=== PATIENT | male | born 1990 | race Caucasian/White ===

== ENCOUNTER → 2016-09-18 14:33 | Emergency (ER) | payer SELFPAY ==
[~2016-09-18 14:33] MED LIST: clonazePAM TAB(*) 0.5 MG ONE; clonazePAM TAB(*) 1 MG PO ONE
[2016-09-18 16:22] VITALS: BP 152/99
--- NOTE | 2016-09-18 16:26 | ED ---
Lachelle Chan Rebecca, scribed for Concha Toro MD on 09/18/16 at 1609 . Complex/Multi-Sys Presentation - HPI Summary HPI Summary: Pt is a 26 y/o M who presents to ED for an Rx refill. Pt reports he was in [place] visiting him mother on morning (2 days ago) where he left his Clonazapam (dose of 2 mg per day). Initially reports that his mother mailed his medication to him. Pt states initially that mom mailed on Tuesday, but thinks it was today. States he does not drive and walked to ED. Pt states he is concerned will have a seizure without medications. Pt states he tried to call his PCP (Dr. Escudero) but was directed to the by answering machine. Pt reports has nausea and feels sweaty. Pt denies olivas, vision changes. States he has gone 3 days without his Clonazepam and is experiencing diaphoresis and decreased PO intake. Reports 1.5 years ago he went without his Clonazapam and had a seizure. Additionally states his Hydrocodone Rx had too high of a dose (300 mg) inputted and was unable to have it filled on Tuesday due to cost. I expressed to concern that may not be able to fill as he recently got an Rx for 30 days supply. I told patient I would consider writing for 2 days but needed to talk to mom to verify she mailed Rx. Pt then admitted that he does not know where they are and that he has not contacted his mother about the lost medication. Review of [facility] shows that he had 30 day supply filled in [place] on 09/03/2016. - History Of Current Complaint Chief Complaint: EDPrescriptionNeeded Time Seen by Provider: 09/18/16 15:39 Hx Obtained From: Patient Onset/Duration: Lasting Days - 3 days without medication Severity Currently: None Location: Negative Aggravating Factor(s): 3 days without Clonazepam Alleviating Factor(s): Nothing Associated Signs And Symptoms: Positive: Nausea, Decreased Oral Intake, Other - Diaphoresis, anxious - Allergies/Home Medications Allergies/Adverse Reactions: Allergies Allergy/AdvReac Type Severity Reaction Status Date / Time Bee Venom Allergy Hives/Diff. Verified 09/18/16 14:45 Breathing/I tching Codeine Allergy Swelling Verified 09/18/16 14:45 Of Face,Lips,& Throat PMH/Surg Hx/FS Hx/Imm Hx Previously Healthy: Yes Endocrine/Hematology History: Denies: Hx Diabetes, Hx Thyroid Disease Cardiovascular History: Denies: Hx Congestive Heart Failure, Hx Deep Vein Thrombosis, Hx Hypertension , Hx Myocardial Infarction, Hx Pacemaker/ICD Respiratory History: Reports: Hx Asthma - He is not using an inhaler now. Denies: Hx Chronic Obstructive Pulmonary Disease (COPD), Hx Lung Cancer GI History: Denies: Hx Gall Bladder Disease, Hx Gastrointestinal Bleed, Hx Ulcer, Hx Urosepsis Musculoskeletal History: Reports: Hx Back Problems Denies: Hx Arthritis, Hx Rheumatoid Arthritis - fell on bus few years ago-he believes he had a seizure, Hx Bursitis, Hx Congenital Bone Abnormalities, Hx Fibromyalgia, Hx Gout, Hx Orthopedic Injury, Hx Osteoporosis, Hx Scoliosis, Hx Tendonitis, Other Musculoskeletal History Neurological History: Reports: Hx Seizures - from benzo withdrawal, Other Neuro Impairments/Disorders - SLIPPED DISCS LUMBAR Denies: Hx Dementia, Hx Migraine, Hx Transient Ischemic Attacks (TIA) Psychiatric History: Reports: Hx Anxiety, Hx Attention Deficit Hyperactivity Disorder, Hx Depression Infectious Disease History: No Infectious Disease History: Denies: Hx Clostridium Difficile, Hx Hepatitis, Hx Human Immunodeficiency Virus (HIV), Hx of Known/Suspected MRSA, Hx Shingles, Hx Tuberculosis, Hx Known/ Suspected VRE, Hx Known/Suspected VRSA, History Other Infectious Disease, Traveled Outside the [place] in Last 30 Days - Family History Known Family History: Positive: Other - anxiety, depression - Social History Occupation: Unemployed Lives: Alone Alcohol Use: Occasionally Alcohol Amount: social drinking Hx Substance Use: No Substance Use Type: Reports: None, Prescribed Hx Tobacco Use: Yes Smoking Status (MU): Light Every Day Tobacco Smoker Type: Cigarettes Amount Used/How Often: couple a day Have You Smoked in the Last Year: Yes Review of Systems Positive: Skin Diaphoresis - secondary to medication non-compliance Eyes: Negative ENT: Negative Cardiovascular: Negative Respiratory: Negative Positive: Other - Decreased PO intake secondary to medicaiton noncompliane Genitourinary: Negative Musculoskeletal: Negative Skin: Negative Neurological: Negative Positive: Anxious All Other Systems Reviewed And Are Negative: Yes Physical Exam Triage Information Reviewed: Yes Vital Signs On Initial Exam: Initial Vitals Temp Pulse Resp BP Pulse Ox 97.7 F 108 16 161/112 97 09/18/16 14:41 09/18/16 14:41 07/29/17 14:41 09/18/16 14:41 09/18/16 14:41 Vital Signs Reviewed: Yes Appearance: Positive: Well-Appearing, No Pain Distress, Well-Nourished Skin: Positive: Warm, Skin Color Reflects Adequate Perfusion, Dry Eyes: Positive: Normal, EOMI, Other: - pupils 5mm b/l, + reactive. Negative: Conjunctiva Clear, Discharge ENT: Positive: Hearing grossly normal, Pharynx normal, TMs normal Neck: Positive: Supple, Nontender, No Lymphadenopathy Respiratory/Lung Sounds: Positive: Clear to Auscultation, Breath Sounds Present , Decreased Breath Sounds Cardiovascular: Positive: Normal, RRR, Pulses are Symmetrical in both Upper and Lower Extremities. Negative: Murmur Abdomen Description: Positive: Nontender, No Organomegaly, Soft Bowel Sounds: Positive: Present Musculoskeletal: Positive: Normal, Strength/ROM Intact Neurological: Positive: Normal, Sensory/Motor Intact, Alert, Oriented to Person Place, Time Psychiatric: Positive: Normal AVPU Assessment: Alert - Swain Coma Scale Best Eye Response: 4 - Spontaneous Best Motor Response: 6 - Obeys Commands Best Verbal Response: 5 - Oriented Diagnostics - Vital Signs Vital Signs Temp Pulse Resp BP Pulse Ox 09/18/16 14:41 97.7 F 108 16 161/112 97 - Laboratory Lab Statement: Any lab studies that have been ordered have been reviewed, and results considered in the medical decision making process. Complex Multi-Symp Course/Dx Assessment/Plan: Pt presents requesting clonazepam x 2 days initialy stating left Rx in [place] at mother's house. upon further questioning, pt states lost his Rx. Will give 1 dose in ED and discharge. no RX. Pt aware and in agreement with plan - Diagnoses Provider Diagnoses: Medication requested Discharge - Discharge Plan Condition: Stable Disposition: HOME Patient Education Materials: Medicine Refill (ED) Referrals: Jared Escudero MD [Primary Care Provider] - Additional Instructions: you were given a 1 time tablet of your missing medication. It is VERY important that you take your medications as exactly as prescribed you must communicate with your primary care provider that you misplaced your prescription call your doctor to discuss the conflict with your other prescriptions The documentation as recorded by the Lachelle frod Rebecca accurately reflects the service I personally performed and the decisions made by Cortez kirby Laura, MD.
== END | disposition home or self-care (01) ==
LOC: ED 14:33
DX: G40.909 Epilepsy, unspecified, not intractable, without status epilepticus (principal); F17.210 Nicotine dependence, cigarettes, uncomplicated
CPT/HCPCS: 99281; A9270-GY

== ENCOUNTER 2016-11-25 09:51 | Inpatient (IN) | payer OTHER ==
[2016-11-25] MEDS ORDERED: LORazepam TAB(*) 1 MG PO ONE (11:59)
[2016-11-25] MEDS ORDERED: cloNIDine TAB* 0.1 MG PO ONE (11:59)
[2016-11-25] MEDS ORDERED: Ondansetron TAB* 4 MG PO ONE (11:59)
[2016-11-25 12:31] LABS: Hematocrit 46 % (42-52); Hemoglobin 15.9 g/dl (14.0-18.0); Mean Corpuscular HGB Conc 35 g/dl (31-36); Mean Corpuscular Hemoglobin 30 pg (27-31); Mean Corpuscular Volume 88 fL (80-94); Mean Platelet Volume 7 um3 (7.4-10.4); Red Blood Count 5.26 10^6/ul (4.0-5.4); Red Cell Distribution Width 13 % (10.5-15); White Blood Count 7.3 10^3/ul (3.5-10.8)
[2016-11-25] MEDS ORDERED: Acetaminophen TAB* 325 MG PO PRN (12:39)
[2016-11-25] MEDS ORDERED: Nicotine GUM* 2 MG PO PRN (12:39)
[2016-11-25] MEDS ORDERED: Ondansetron INJ* 2 MG/ML VIAL IV PRN (12:39)
[2016-11-25 12:48] LABS: ALT 79 U/L (7-52); AST 36 U/L (13-39); Albumin 4.8 g/dL (3.2-5.2); Alkaline Phosphatase 62 U/L (34-104); Anion Gap 10 mmol/L (2-11); BUN/Creatinine Ratio 10.3 (8-20); Blood Urea Nitrogen 9 mg/dL (6-24); CO2 Carbon Dioxide 28 mmol/L (22-32); Calcium 9.8 mg/dL (8.6-10.3); Chloride 99 mmol/L (101-111); EGFR African American 135.4 (>60); EGFR Non-African American 105.3 (>60); Globulin 3.4 g/dL (2-4); Glucose 99 mg/dL (70-100); Potassium 3.9 mmol/L (3.5-5.0); Sodium 137 mmol/L (133-145); Total Protein 8.2 g/dL (6.4-8.9)
[2016-11-25 13:10] LABS: Acetaminophen < 15 mcg/mL; Alcohol < 10 mg/dL (<10); Salicylate < 2.50 mg/dL (<30)
[2016-11-25 13:28] LABS: TSH (Thyroid Stimulating Horm) 1.45 mcIU/mL (0.34-5.60)
--- NOTE | 2016-11-25 14:39 | HP ---
HOSPITAL MEDICINE HISTORY AND PHYSICAL: DATE OF ADMISSION: 11/25/16 PRIMARY CARE PHYSICIAN: None. ATTENDING PHYSICIAN: Dr. Cande Chavis * (dictation provided by Pooja Murguia NP ). CHIEF COMPLAINT: Withdrawal from benzodiazepines and narcotics. HISTORY OF PRESENT ILLNESS: Mr. Watson is a 26-year-old male, who presents today via EMS with concern for symptoms of withdrawal from benzodiazepines and narcotics. Mr. Watson has been on hydrocodone for a back injury, which he sustained around age 20 to 21 years old. He states he had an MRI that showed that he had "two bad disks." He was first on tramadol, then CODEINE (from which he developed hives), and then hydrocodone. He has been obtaining that medication through Dr. Escudero's office routinely. He was prescribed clonazepam related to anxiety related to a job he had at [employer]. He is no longer working for [employer], but has continued on clonazepam for ongoing anxiety issues. He states that he was in counseling for a short period of time, but "it didn't work." He reports in the past that he has had a withdrawal seizure related to benzodiazepine use. Though he has been getting these medications through Dr. Escudero's office, per his report, he recently switched over to [place] and Dr. Escudero' s office does not take that insurance. Therefore, he is no longer patient of Dr. Escudero's and has not been getting his hydrocodone or benzodiazepine. The patient states his last dose of hydrocodone was on 11/21/16. His last dose of benzodiazepine was 7 days ago. He reports today that he "felt like absolute hell." He reports having sweaty hands and feet. He had visual distortions. He had insomnia. He had feeling of whooshing in his head. He ultimately called EMS and was brought to the emergency room. In the emergency room, Mr. Watson had vital signs that showed that he was hypertensive with the blood pressure running 143/119. He is mildly tachycardic with a heart rate running above 100. He reports that he would like support in withdrawing from hydrocodone and clonazepam and that he is interested in rehab once he has overcome these withdrawal symptoms. At this time, his labs are pending. PAST MEDICAL HISTORY: 1. Reported back injury at age 20 to 21. 2. Anxiety. MEDICATIONS: 1. Clonazepam 1 mg b.i.d. 2. Hydrocodone 5/325 mg 1 tab p.o. q.12 hours p.r.n. 3. Tramadol 100 mg p.o. daily. ALLERGIES: To CODEINE, BEE VENOM. FAMILY HISTORY: The patient reports his mother is alive and well. His father has heart disease and hypertension. There is some report of his paternal grandfather dying young related to needed heart transplant. SOCIAL HISTORY: The patient is an intermittent smoker. He reports that typically he is not a big drinker, but when he is out of his medications, he does drink more heavily and has been doing so recently. No report of illicit drug use, but he does confirm that he has been using his clonazepam inappropriately as he has run out of his hydrocodone. REVIEW OF SYSTEMS: A 14-point review of systems was completed with Mr. Watson and all those not mentioned above were negative except for the fact that the patient does mention a "rash" to the side of his shoulder and torso. PHYSICAL EXAMINATION GENERAL: Mr. Watson is lying on the bed. He is in no acute distress. VITAL SIGNS: Temperature 99.6, heart rate 102, respiratory rate 18, O2 saturation 99% on room air, blood pressure 143/119. HEENT: The patient is normocephalic. His pupils are equal and reactive. His disc margins are sharp. There is no AV nicking. He has normal tympanic membranes with no erythema or drainage. There is no lymphadenopathy. LUNGS: Clear to auscultation bilaterally with no accessory muscle use and good aeration. HEART: S1 and S2. No murmur, rub, or gallop, and regular. ABDOMEN: Soft and nontender with bowel sounds positive x4. EXTREMITIES: No cyanosis or edema. NEURO: He is alert, he is oriented x3. He moves all extremities equally. There is no facial asymmetry or focal weakness. Extraocular movements are intact. SKIN: The patient has 2 to 3 raised papules on his shoulder and 1 to 2 on the side of his left torso. There is no drainage. There is no associated erythema. No open area. DIAGNOSTIC STUDIES/LAB DATA: Labs are pending. EKG shows a sinus rhythm with no evidence of ischemia. ASSESSMENT AND PLAN: Mr. Watson is a 26-year-old male with a past medical history of back pain and anxiety for which he has been on hydrocodone, tramadol , and clonazepam, who presents to the hospital today after no longer being able to get those prescriptions from Dr. Escudero's office reportedly related to an insurance issue with concern for narcotic and benzodiazepine withdrawal. Our plans are for observation in the hospital for the followin. Narcotic and benzodiazepine withdrawal: The patient actually looks quite well at the moment. He has received clonidine and lorazepam in the emergency room, both x1. Our plans will be to manage narcotic withdrawal with clonidine q.8 hours p.r.n. We will manage benzodiazepine withdrawal with the lorazepam taper. He will be hydrated with normal saline at 100 mL per hour and we can adjust this planned medication regimen based on clinical course. 2. History of smoking. The patient will have nicotine replacement products available prn. 3. Pending labs: Plan to review labs when those are available and adjust the treatment course as needed. 4. DVT prophylaxis. Early mobility. 5. Code status is full code. 6. Disposition to the medical floor. Social Work has been consulted regarding the patient's request for rehabilitation. TIME SPENT: Approximately 60 minutes was spent in the admission of this patient , more than half time spent with the patient at the bedside reviewing the events leading up to this hospitalization, performing the physical examination, and reviewing my plan of care. POOJA MURGUIA NP [id number]/CPS #: [id number] RONAK
--- NOTE | 2016-11-25 14:55 | ED ---
Domingo Chan Thomas, scribed for Darian Wilder MD on 11/25/16 at 1201 . Substance Abuse/Use - HPI Summary HPI Summary: The pt is a 26 y/o M presenting to the ED c/o withdrawal symptoms after he ran out of hydrocodone four days ago and ran out of Klonopin seven days ago. Symptoms include N/V/D, shakiness, diaphoresis, insomnia, tinnitus, and visual disturbances. He has been self-medicating with alcohol in the last few days but he denies alcohol use today. He last used alcohol yesterday. He also was given Xanax by his friend a few days ago. In the past, he reports seizures d/t benzodiazepine withdrawal. He was initially prescribed hydrocodone by Dr. Delfino Molina from Dr. Thomas office for chronic back pain. He was prescribed benzodiazepines by Dr. Mckeon. The patient says that he lost his job 5 months ago and for this reason he will no longer be seen by his doctors. PMHx: chronic back pain. PSHx: none. SHx: daily alcohol use, prescribed opioid use, prescribed benzodiazepine use. FHx: CAD, anxiety, depression. - History Of Current Complaint Chief Complaint: EDDetoxRequest Stated Complaint: WITHDRAWAL Time Seen by Provider: 11/25/16 11:30 Hx Obtained From: Patient Ingestion History: Type/Name Of Drug - Prior hydrocodone and Klonopin use Timing Of Abuse: Recent Cessation For A Period Of - stopped hydrocodone four days ago and Clonopin seven days ago Aggravating Factor(s): Nothing Alleviating Factor(s): Other - Xanax helped his withdrawal symtpoms Associated Signs And Symptoms: Sleep Disturbance, Diaphoretic, Nausea, Vomiting , Diarrhea, Other: - shakiness, tinnitus, visual disturbances Related Hx: Drug/Alcohol Last Used @ - Alcohol last used yesterday, Xanax last used earlier this week - Allergies/Home Medications Allergies/Adverse Reactions: Allergies Allergy/AdvReac Type Severity Reaction Status Date / Time Bee Venom Allergy Hives/Diff. Verified 09/18/16 14:45 Breathing/I tching Codeine Allergy Swelling Verified 09/18/16 14:45 Of Face,Lips,& Throat Bad table PMH/Surg Hx/FS Hx/Imm Hx Previously Healthy: No Endocrine/Hematology History: Denies: Hx Diabetes, Hx Thyroid Disease Cardiovascular History: Denies: Hx Congestive Heart Failure, Hx Deep Vein Thrombosis, Hx Hypertension , Hx Myocardial Infarction, Hx Pacemaker/ICD Respiratory History: Reports: Hx Asthma - He is not using an inhaler now. Denies: Hx Chronic Obstructive Pulmonary Disease (COPD), Hx Lung Cancer GI History: Denies: Hx Gall Bladder Disease, Hx Gastrointestinal Bleed, Hx Ulcer, Hx Urosepsis Musculoskeletal History: Reports: Hx Back Problems Denies: Hx Arthritis, Hx Rheumatoid Arthritis - fell on bus few years ago-he believes he had a seizure, Hx Bursitis, Hx Congenital Bone Abnormalities, Hx Fibromyalgia, Hx Gout, Hx Orthopedic Injury, Hx Osteoporosis, Hx Scoliosis, Hx Tendonitis, Other Musculoskeletal History Neurological History: Reports: Hx Seizures - from benzo withdrawal, Other Neuro Impairments/Disorders - SLIPPED DISCS LUMBAR Denies: Hx Dementia, Hx Migraine, Hx Transient Ischemic Attacks (TIA) Psychiatric History: Reports: Hx Anxiety, Hx Attention Deficit Hyperactivity Disorder, Hx Depression - Surgical History Surgery Procedure, Year, and Place: None Infectious Disease History: No Infectious Disease History: Denies: Hx Clostridium Difficile, Hx Hepatitis, Hx Human Immunodeficiency Virus (HIV), Hx of Known/Suspected MRSA, Hx Shingles, Hx Tuberculosis, Hx Known/ Suspected VRE, Hx Known/Suspected VRSA, History Other Infectious Disease, Traveled Outside the [place] in Last 30 Days - Family History Known Family History: Positive: Cardiac Disease, Other - anxiety, depression - Social History Occupation: Unemployed Alcohol Use: Occasionally Alcohol Amount: last used alcohol yesterday Hx Substance Use: No Substance Use Type: Reports: Prescribed Substance Use Comment - Amount & Last Used: hydrocodone and Klonopin Hx Tobacco Use: Yes Smoking Status (MU): Light Every Day Tobacco Smoker Type: Cigarettes Amount Used/How Often: couple a day Have You Smoked in the Last Year: Yes Review of Systems Positive: Skin Diaphoresis. Negative: Fever Positive: Other - Visual disturbances Positive: Other - Tinnitus Positive: Vomiting, Diarrhea, Nausea Neurological: Other - Shakiness, insominia All Other Systems Reviewed And Are Negative: Yes Physical Exam Triage Information Reviewed: Yes Vital Signs On Initial Exam: Initial Vitals Resp 9 11/25/16 10:02 Vital Signs Reviewed: Yes Appearance: Positive: Ill-Appearing - tremulous, anxious Skin: Positive: Warm Head/Face: Positive: Normal Head/Face Inspection Eyes: Positive: EOMI ENT: Positive: Normal ENT inspection Neck: Positive: Supple Respiratory/Lung Sounds: Positive: Clear to Auscultation, Breath Sounds Present Cardiovascular: Positive: Tachycardia. Negative: Murmur Abdomen Description: Positive: Nontender Musculoskeletal: Positive: Strength/ROM Intact Neurological: Positive: Sensory/Motor Intact, Alert, Oriented to Person Place, Time, CN Intact II-III, Other - shaky, anxious, tremulous Psychiatric: Positive: Anxious - Denys Coma Scale Best Eye Response: 4 - Spontaneous Best Motor Response: 6 - Obeys Commands Best Verbal Response: 5 - Oriented Coma Scale Total: 15 Diagnostics - Vital Signs Vital Signs Temp Pulse Resp BP Pulse Ox 11/25/16 11:30 91 17 138/90 98 11/25/16 11:00 99 18 135/96 99 11/25/16 10:31 114 27 142/109 95 11/25/16 10:25 99.6 F 97 18 134/84 97 11/25/16 10:13 134/84 11/25/16 10:02 9 - Laboratory Result Diagrams: 11/25/16 12:15 11/25/16 12:15 Lab Statement: Any lab studies that have been ordered have been reviewed, and results considered in the medical decision making process. - EKG 12:02 Cardiac Rate: NL - 88 BPM EKG Interpretation: No STEMI. Course/Dx - Course Course Of Treatment: 26 yr old male with polysubstance abuse including, narcotics, benzos, and ETOH. He is in withdrawal and has had seizures from this in the past. Will get him admitted for further management. - Diagnoses Provider Diagnoses: Narcotic withdrawal, Benzodiazepine withdrawal, Alcohol withdrawal - Physician Notifications Discussed Care Of Patient With: Cande Gifford Time Discussed With Above Provider: 12:00 Instructed by Provider To: Other - I consulted with Dr. Gifford, hospitalist, regarding medicaiton choice if the patient is to be admitted for withdrawal at [facility] [place]. Discharge - Discharge Plan Condition: Fair Disposition: ADMITTED TO [facility] documentation as recorded by the Domingo ford Thomas accurately reflects the service I personally performed and the decisions made by me, Darian Wilder MD.
[2016-11-25] MEDS: LORazepam TAB(*) 1 MG PO SCH ×2 (15:28→20:33)
[2016-11-25] MEDS ORDERED: Mouth Piece, Nicotine* 1 EACH CARTRIDGE ONE (17:45)
[2016-11-25] MEDS: Nicotine Inhaler* 10 MG AMP INH PRN (17:58)
[2016-11-25 18:44] LABS: Urine Bilirubin Negative (Negative); Urine Glucose Negative (Negative); Urine Nitrite Negative (Negative)
[2016-11-25] MEDS: NS 0.9% 1000 ML* 1,000 ML IV SCH (18:58)
[2016-11-25] MEDS: cloNIDine TAB* 0.1 MG PO PRN (19:16)
[2016-11-25] MEDS: Loperamide LIQ* 2 MG/10 ML UDC PO PRN ×2 (19:16→21:30)
[2016-11-26] MEDS: LORazepam TAB(*) 1 MG PO SCH (04:30)
[2016-11-26] MEDS: NS 0.9% 1000 ML* 1,000 ML IV SCH ×2 (05:06→15:11)
[2016-11-26] MEDS: Loperamide LIQ* 2 MG/10 ML UDC PO PRN ×3 (05:32→19:41)
[2016-11-26] MEDS: cloNIDine TAB* 0.1 MG PO PRN ×3 (05:32→21:31)
[2016-11-26] MEDS: LORazepam TAB(*) 1 MG PO PRN ×2 (10:27→15:09)
[2016-11-26] MEDS: Nicotine Inhaler* 10 MG AMP INH PRN ×2 (10:27→13:27)
[2016-11-26 10:51] LABS: Benzodiazepine Urine Screen Presumptive Positive (None Detect)
--- NOTE | 2016-11-26 14:41 | PN ---
Subjective Date of Service: 11/26/16 Interval History: Mr. Watson was experiencing tachycardia, anxiety, tremulousness, diarrhea, and diaphoresis this morning. He received an extra dose of ativan and feels much better now. Family History: Unchanged from Admission Social History: Unchanged from Admission Past Medical History: Unchanged from Admission Objective Active Medications: Acetaminophen (Tylenol Tab*) 650 mg PO Q6H PRN PRN Reason: PAIN Clonidine HCl (Catapres Tab*) 0.1 mg PO Q8H PRN PRN Reason: WITHDRAWAL SYMPTOMS Last Admin: 11/26/16 13:26 Dose: 0.1 mg Sodium Chloride (Ns 0.9% 1000 Ml*) 1,000 mls @ 100 mls/hr IV PER RATE WALTER Last Admin: 11/26/16 05:06 Dose: 100 mls/hr Loperamide HCl (Imodium Liq*) 2 mg PO .SEE ORDER PRN PRN Reason: DIARRHEA Last Admin: 11/26/16 05:32 Dose: 2 mg Lorazepam (Ativan Tab(*)) 1 mg PO Q4H PRN PRN Reason: ANXIETY Last Admin: 11/26/16 10:27 Dose: 1 mg Lorazepam (Ativan Tab(*)) 2 mg PO Q12H WALTER Stop: 11/27/16 05:01 Nicotine (Nicotine Inhaler*) 10 mg INH Q2H PRN PRN Reason: CRAVING Last Admin: 11/26/16 13:27 Dose: 10 mg Nicotine Polacrilex (Nicotine Gum*) 2 mg PO Q2H PRN PRN Reason: CRAVING Ondansetron HCl (Zofran Inj*) 4 mg IV Q6H PRN PRN Reason: NAUSEA Oxygen Devices in Use Now: None Appearance: alert, sitting up in bed, no distress Eyes: No Scleral Icterus, PERRLA Ears/Nose/Mouth/Throat: NL Teeth, Lips, Gums, Clear Oropharnyx Neck: NL Appearance and Movements; NL JVP, Trachea Midline Respiratory: Symmetrical Chest Expansion and Respiratory Effort, Clear to Auscultation Cardiovascular: NL Sounds; No Murmurs; No JVD, RRR, - Abdominal: NL Sounds; No Tenderness; No Distention, No Hepatosplenomegaly Lymphatic: No Cervical Adenopathy Extremities: No Edema Skin: No Rash or Ulcers Neurological: Alert and Oriented x 3, - - no diaphoresis, no piloerection, no tremors Result Diagrams: 11/25/16 12:15 11/25/16 12:15 Assess/Plan/Problems-Billing Assessment: 1. Acute benzodiazepine Withdrawal He was unable to fill his klonopin. He is not interested in detoxing from benzodiazepines, so with that in mind, I'd like to switch him from the ativan taper to his home dose of klonopin. 2. Acute narcotic withdrawal Well controlled with clonidine. He plans to go to [facility] outpatient and wants to be detoxed from narcotics completely. Continue symptomatic relief. 3. Tobacco Abuse nicotine replacement prn 4. dvt ppx. ambulatory.
[2016-11-26] MEDS ORDERED: LORazepam TAB(*) 1 MG PO SCH ×2 (17:00)
[2016-11-26] MEDS: clonazePAM TAB(*) 1 MG PO PRN (18:06)
[2016-11-27] MEDS: clonazePAM TAB(*) 1 MG PO PRN (05:58)
[2016-11-27] MEDS: cloNIDine TAB* 0.1 MG PO PRN ×2 (05:58→14:20)
[2016-11-27] MEDS: NS 0.9% 1000 ML* 1,000 ML IV SCH (06:00)
[2016-11-27 08:23] VITALS: BP 114/80
[2016-11-27] MEDS: Loperamide LIQ* 2 MG/10 ML UDC PO PRN (09:05)
[2016-11-27] MEDS: Nicotine Inhaler* 10 MG AMP INH PRN (14:22)
--- NOTE | 2016-11-28 17:26 | DS ---
ADDENDUM NOW INCLUDED ON THIS REPORT CC: Dr. Jared Escudero * DISCHARGE SUMMARY: DATE OF ADMISSION: 11/25/16 DATE OF DISCHARGE: 11/27/16 PRIMARY CARE PHYSICIAN: Dr. Jared Escudero. PRIMARY DISCHARGE DIAGNOSIS: Acute opioid withdrawal. SECONDARY DISCHARGE DIAGNOSES: 1. Benzodiazepine abuse. 2. Tobacco abuse. HOSPITAL COURSE BY PROBLEM: 1. Acute narcotic withdrawal. Mr. Watson had been getting hydrocodone from his primary care physician's office for the past 5 years for back pain and he recently lost his job and his insurance so he was unable to be seen by Dr. Escudero and his hydrocodone prescription ran out. He presented with diarrhea, diaphoresis, and anxiety to the emergency department. At admission, he was started on clonidine and had a symptomatic relief with loperamide. He expressed wishes to be detoxed from narcotics completely so he is being discharged without any narcotics. He was given a prescription for clonidine p.r.n. withdrawal symptoms to continue at home for the next several days. 2. Acute benzodiazepine withdrawal. He ran out of his benzodiazepines at the same time several days prior to admission; however, he decided that he did not want to detoxed from benzodiazepine, so he was resumed on his home dose of Klonopin at 1 mg p.o. b.i.d. p.r.n. anxiety. Of note, he had just filled his Klonopin script on 11/04/16 with 60 pills and he admitted to taking twice as many as prescribed. He is well known to [facility] and declined Social Work intervention for us to arrange rehab for him at discharge. 3. Tobacco abuse. He used nicotine replacement products during this admission , but declined a prescription for them upon discharge. TIME SPENT: Sixty minutes was spent on this discharge, greater than half the time was spent [id number] with the patient. ADDENDUM: PHYSICAL EXAMINATION: On 11/27/16, general: Alert, well-appearing, in no distress, no tremors. HEENT: Pupils 4 mm bilaterally and reactive to light. Moist mucosa. Neck: No cervical adenopathy. Thyroid nonpalpable. Chest: Regular rate and rhythm. No murmurs. Lungs: Clear bilaterally. Abdomen: Soft, nontender, nondistended. Extremities: No edema or ecchymosis. Neurologic: No piloerection, no diaphoresis, no anxiety or tremulousness. REVIEW OF SYSTEMS: Positive for diarrhea and muscle aches. The remainder of the 14-point review of systems was negative. [id number]/[facility] #: [id number]/[facility] #: [id number] [facility]
--- NOTE | 2016-11-28 17:34 | DS ---
DISCHARGE SUMMARY: ADDENDUM: PHYSICAL EXAMINATION: On 11/27/16, general: Alert, well-appearing, in no distress, no tremors. HEENT: Pupils 4 mm bilaterally and reactive to light. Moist mucosa. Neck: No cervical adenopathy. Thyroid nonpalpable. Chest: Regular rate and rhythm. No murmurs. Lungs: Clear bilaterally. Abdomen: Soft, nontender, nondistended. Extremities: No edema or ecchymosis. Neurologic: No piloerection, no diaphoresis, no anxiety or tremulousness. REVIEW OF SYSTEMS: Positive for diarrhea and muscle aches. The remainder of the 14-point review of systems was negative. [id number]/[facility] #: [id number] [facility]
== END 2016-11-27 17:57 | disposition home or self-care (01) | DRG 773 ==
LOC: ED 09:51 → MED 12:32 → OBSVTOIN 11-26 13:09
PROVIDERS: ADMIT Internal Medicine; ATTEND Internal Medicine
DX: F11.23 Opioid dependence with withdrawal (principal); I10 Essential (primary) hypertension; F41.9 Anxiety disorder, unspecified; F17.200 Nicotine dependence, unspecified, uncomplicated; R21 Rash and other nonspecific skin eruption; G89.29 Other chronic pain; M54.9 Dorsalgia, unspecified; F32.9 Major depressive disorder, single episode, unspecified; J45.909 Unspecified asthma, uncomplicated; M51.26 Other intervertebral disc displacement, lumbar region; F90.9 Attention-deficit hyperactivity disorder, unspecified type; F13.239 Sedative, hypnotic or anxiolytic dependence with withdrawal, unspecified; R40.2362 Coma scale, best motor response, obeys commands, at arrival to emergency department; R40.2142 Coma scale, eyes open, spontaneous, at arrival to emergency department; R40.2252 Coma scale, best verbal response, oriented, at arrival to emergency department; Z88.5 Allergy status to narcotic agent; Z91.030 Bee allergy status; Z82.49 Family history of ischemic heart disease and other diseases of the circulatory system; Z72.89 Other problems related to lifestyle; Z81.8 Family history of other mental and behavioral disorders; Z56.0 Unemployment, unspecified
CPT/HCPCS: 36415; 80053; 80307; 80320; 80329; 81003; 84443; 85025; 93005; A9270-GY; G0378; G0480